=== PATIENT | male | born 1990 | race African-American/Black ===

== ENCOUNTER 2016-08-31 01:01 | Emergency (ER) | payer MEDICAID, OTHER ==
[~2016-08-31] VITALS: Ht 172.7 cm; Wt 100.0 kg
[2016-08-31 04:43] LABS: BASOPHILS % 0.5 % (0.0-2.0); EOSINOPHILS % 1.3 % (0.0-5.0); HEMATOCRIT. 31.3 % (42.0-52.0); HEMOGLOBIN. 10.3 g/dL (14.0-18.0); LYMPHOCYTES % 9.8 % (20.0-50.0); MEAN CORPUSCULAR HEMOGLOBIN 27.9 pg (28.0-32.0); MEAN CORPUSCULAR VOLUME 85.3 fL (80.0-94.0); MEAN PLATELET VOLUME 7.4 fl (7.4-10.4); MONOCYTES % 8.5 % (2.0-8.0); NEUTROPHILS % 79.9 % (40.0-76.0); PLATELET 427 x1000/uL (130-400); RED BLOOD CELL COUNT 3.67 mill/uL (4.7-6.1); RED CELL DISTRIBUTION WIDTH 12.9 % (11.6-14.6)
[2016-08-31] MEDS ORDERED: LIDOCAINE HCL 1% 20ML VIAL (Pyxis) INJ INFIL NR (05:15)
[2016-08-31] MEDS ORDERED: KETOROLAC 60MG/2ML VIAL IM NR (05:15)
[2016-08-31] MEDS: CEFTRIAXONE SODIUM 1 G/VIAL IM NR ×2 (05:49→06:16)
[2016-08-31 06:00] VITALS: BP 137/76
== END 2016-08-31 06:49 | disposition home or self-care (01) ==
LOC: ER 01:02
DX: J18.1 Lobar pneumonia, unspecified organism (principal)
CPT/HCPCS: 36415; 71010; 85025; 96372; 99285; J0696; J1885; J3490